=== PATIENT | male | born 1950 | race Caucasian/White ===

== ENCOUNTER → 2018-06-30 | Outpatient (CLI) | payer BC ==
[~2018-06-30] MED LIST: AMLO5TAB7 PO; ATOR10TA9 PO; CARV-39 PO; LISI-170 PO
[2018-06-30 13:53] LABS: BASOPHILS # (AUTO) 0.03 x10^3/uL (0-0.1); BASOPHILS % (AUTO) 0 % (0-1); EOSINOPHILS # (AUTO) 0.36 x10^3/uL (0-0.4); EOSINOPHILS % (AUTO) 3 % (1-7); LYMPHOCYTES # (AUTO) 2.07 x10^3/uL (1-3.4); LYMPHOCYTES % (AUTO) 19 % (22-44); MD NO; MEAN CORPUSCULAR HEMOGLOBIN 31.7 pg (27.5-34.5); MEAN CORPUSCULAR HGB CONC 33.1 g/dL (33.2-36.2); MEAN CORPUSCULAR VOLUME 95.8 fL (81-97); MEAN PLATELET VOLUME 9.7 fL (7.4-10.4); MONOCYTES # (AUTO) 0.85 x10^3/uL (0.2-0.8); MONOCYTES % (AUTO) 8 % (2-9); NEUTROPHILS # (AUTO) 7.78 x10^3/uL (1.8-6.8); NEUTROPHILS % (AUTO) 70 % (42-75); PLATELET COUNT 223 x10^3/uL (130-400); RED BLOOD COUNT 4.46 x10^6/uL (4.38-5.82); RED CELL DISTRIBUTION WIDTH 15.1 % (9.4-14.8)
[2018-06-30 13:57] LABS: MICROSCOPIC NOT IND
[2018-06-30 14:02] LABS: ALANINE AMINOTRANSFERASE 30 U/L (12-78); ALBUMIN 4.2 g/dL (3.4-5.0); ANION GAP 9 mmol/L (5-15); CALCIUM 9.1 mg/dL (8.5-10.1); CHLORIDE 108 mmol/L (98-107); CREATININE 1.18 mg/dL (0.7-1.3)
[2018-06-30 14:05] LABS: ALKALINE PHOSPHATASE 97 U/L (45-117); BILIRUBIN,TOTAL 0.6 mg/dL (0.2-1.0)
[2018-06-30 14:10] LABS: CULTURE INDICATED? NO
== END | disposition home or self-care (01) ==
LOC: STAR 12:50
PROVIDERS: ATTEND Orthopaedic Surgery
DX: Z01.818 Encounter for other preprocedural examination (principal); M17.11 Unilateral primary osteoarthritis, right knee; M25.561 Pain in right knee
CPT/HCPCS: 36415; 80053; 81003; 85025; 87081; 93005

== ENCOUNTER 2018-07-14 06:40 | Inpatient (IN) | payer BC ==
[~2018-07-14] VITALS: Ht 177.8 cm; Wt 87.9 kg
[~2018-07-14 06:40] MED LIST changes: +EPINEPHRINE 1 MG/ML, 1ML ONE; +KETOROLAC 60 MG/2 ML ONE; +ROPIvacaine/PF 0.2%, 20 ML ONE; +SODIUM CHLORIDE 0.9% 0 ML ONE; +TRANEXAMIC ACID 100 MG/ML, 10ML ONE
[2018-07-14] MEDS ORDERED: LACTATED RINGERS 1,000 ML IV SCH (07:02)
[2018-07-14] MEDS ORDERED: SCOPOLAMINE PATCH, 1.5MG PATCH.TD72 TD STA (07:03)
[2018-07-14] MEDS ORDERED: GABAPENTIN 300 MG CAPSULE PO STA (07:03)
[2018-07-14] MEDS ORDERED: ACETAMINOPHEN 500 MG TABLET PO STA (07:03)
[2018-07-14] MEDS ORDERED: FENTANYL PF 250 MCG/5ML ONE (08:07)
[2018-07-14] MEDS ORDERED: MIDAZOLAM 1 MG/ML, 2ML ONE (08:07)
[2018-07-14] MEDS ORDERED: D5%-0.45% NACL 1,000 ML IV SCH (08:55)
[2018-07-14] MEDS ORDERED: BISACODYL 10 MG SUPP PR PRN (09:00)
[2018-07-14] MEDS ORDERED: DOCUSATE 100 MG CAPSULE PO SCH (09:00)
[2018-07-14] MEDS ORDERED: TEMPLATE NON-FORMULARY MED. (Carvedilol** 25 MG) PO SCH (09:00)
[2018-07-14] MEDS ORDERED: MAGNESIUM HYDROXIDE 8%, 30ML UDC PO PRN (09:00)
[2018-07-14] MEDS ORDERED: ACETAMINOPHEN 650 MG/20.3 ML UDC PO SCH (09:00)
[2018-07-14] MEDS ORDERED: ZOLPIDEM 5MG TABLET PO PRN (09:00)
[2018-07-14] MEDS ORDERED: ONDANSETRON 4 MG TABLET PO PRN (09:00)
[2018-07-14] MEDS ORDERED: ALUMINUM/MAG/SIMETHICONE 30 ML UDC PO PRN (09:00)
[2018-07-14] MEDS ORDERED: SENNA/DOCUSATE TABLET PO PRN (09:00)
[2018-07-14] MEDS ORDERED: DIAZEPAM 5 MG TABLET PO PRN (09:00)
[2018-07-14] MEDS ORDERED: DIPHENHYDRAMINE 50 MG CAPSULE PO PRN (09:00)
[2018-07-14] MEDS ORDERED: HYDROmorphone 1 MG/ML, 1ML IV PRN (09:00)
[2018-07-14] MEDS ORDERED: ONDANSETRON 2MG/ML, 2ML IV PRN (09:00)
[2018-07-14] MEDS ORDERED: TEMPLATE NON-FORMULARY MED. (Amlodipine Besylate** 5 MG) PO SCH (09:00)
[2018-07-14] MEDS ORDERED: PROMETHAZINE 12.5 MG SUPP PR PRN (09:00)
[2018-07-14] MEDS ORDERED: KETOROLAC 30 MG/1 ML IV SCH (09:00)
[2018-07-14] MEDS ORDERED: PROMETHAZINE 25 MG/ML, 1ML IM PRN (09:00)
[2018-07-14] MEDS ORDERED: LISINOPRIL 20 MG TABLET PO SCH (09:00)
[2018-07-14] MEDS ORDERED: MULTIVITAMINS/MINERALS TABLET PO SCH (09:00)
[2018-07-14] MEDS ORDERED: OXYcodone IR 5MG TABLET PO PRN (09:00)
[2018-07-14] MEDS ORDERED: ONDANSETRON 2MG/ML, 2ML ONE (09:13)
[2018-07-14] MEDS ORDERED: CEFAZOLIN 1,000 MG ONE (09:13)
[2018-07-14] MEDS ORDERED: ROCURONIUM 10MG/ML,5ML ONE (09:13)
[2018-07-14] MEDS ORDERED: EPHEDRINE 50 MG/ML, 1ML ONE (09:13)
[2018-07-14] MEDS ORDERED: SUCCINYLCHOLINE 20 MG/ML, 10ML ONE (09:13)
[2018-07-14] MEDS ORDERED: DEXAMETHASONE 4 MG/ML, 1ML ONE (09:13)
[2018-07-14] MEDS ORDERED: GLYCOPYRROLATE 0.2MG/1ML, 5ML ONE (09:13)
[2018-07-14] MEDS ORDERED: PROPOFOL 10 MG/ML, 20ML ONE (09:13)
[2018-07-14] MEDS ORDERED: SUGAMMADEX 200 MG/2 ML IVPush ONE (09:35)
[2018-07-14] MEDS ORDERED: TAMSULOSIN 0.4 MG CAP.ER.24H PO SCH (10:45)
[2018-07-14 10:51] LABS: BASOPHILS # (AUTO) 0.02 x10^3/uL (0-0.1); BASOPHILS % (AUTO) 0 % (0-1); EOSINOPHILS # (AUTO) 0.28 x10^3/uL (0-0.4); EOSINOPHILS % (AUTO) 4 % (1-7); LYMPHOCYTES # (AUTO) 1.09 x10^3/uL (1-3.4); LYMPHOCYTES % (AUTO) 17 % (22-44); MD NO; MEAN CORPUSCULAR HEMOGLOBIN 31.8 pg (27.5-34.5); MEAN CORPUSCULAR HGB CONC 33.7 g/dL (33.2-36.2); MEAN CORPUSCULAR VOLUME 94.6 fL (81-97); MEAN PLATELET VOLUME 9.3 fL (7.4-10.4); MONOCYTES % (AUTO) 5 % (2-9); NEUTROPHILS # (AUTO) 4.77 x10^3/uL (1.8-6.8); NEUTROPHILS % (AUTO) 74 % (42-75); PLATELET COUNT 221 x10^3/uL (130-400); RED BLOOD COUNT 4.33 x10^6/uL (4.38-5.82); RED CELL DISTRIBUTION WIDTH 15.1 % (9.4-14.8)
[2018-07-14 11:00] LABS: ALANINE AMINOTRANSFERASE 23 U/L (12-78); ALBUMIN 3.6 g/dL (3.4-5.0); ANION GAP 6 mmol/L (5-15); CALCIUM 8.7 mg/dL (8.5-10.1); CHLORIDE 110 mmol/L (98-107); CREATININE 0.98 mg/dL (0.7-1.3)
[2018-07-14] MEDS ORDERED: TRANEXAMIC ACID 1,000 MG in SODIUM CHLORIDE 0.9% 100 ML IVPB ONE (11:00)
[2018-07-14 11:05] LABS: ALKALINE PHOSPHATASE 81 U/L (45-117); BILIRUBIN,TOTAL 0.4 mg/dL (0.2-1.0); TOTAL PROTEIN 6.8 g/dL (6.4-8.2); TROPONIN I < 0.015 ng/mL (0.000-0.045)
[2018-07-14 12:30] VITALS: BP 108/72
[2018-07-14 13:32] LABS: CHOL/HDL RATIO 2.6; LDL/HDL RATIO 1.4 (0.5-3.0)
[2018-07-14 13:51] VITALS: BP 101/60
[2018-07-14 16:34] LABS: TROPONIN I < 0.015 ng/mL (0.000-0.045)
[2018-07-14] MEDS ORDERED: CEFAZOLIN PMX 2GM/50ML 50 ML IVPB SCH (17:30)
[2018-07-14] MEDS ORDERED: ASPIRIN 325 MG TABLET EC PO SCH (18:00)
[2018-07-14 19:38] VITALS: BP 113/71
[2018-07-14] MEDS ORDERED: ATORVASTATIN 10 MG TABLET PO SCH (21:00)
[2018-07-14] MEDS ORDERED: TEMPLATE NON-FORMULARY MED. (Atorvastatin Calcium** 10 MG) PO SCH (21:00)
[2018-07-14 22:34] LABS: TROPONIN I < 0.015 ng/mL (0.000-0.045)
[2018-07-15 02:18] VITALS: BP 114/72
[2018-07-15] MEDS ORDERED: DEXAMETHASONE 4 MG/ML, 1ML IVPush SCH (06:00)
[2018-07-15] MEDS ORDERED: CARVEDILOL 25 MG TABLET PO SCH ×2 (06:00→09:00)
[2018-07-15 08:00] VITALS: BP 124/66
[2018-07-15] MEDS ORDERED: REGADENOSON 0.4 MG/5 ML SYRINGE ONE (08:18)
[2018-07-15 12:28] VITALS: BP 131/79
[2018-07-16] MEDS ORDERED: aspirin PO (12:00)
== END 2018-07-15 15:20 | disposition home or self-care (01) | DRG 554 ==
LOC: OUT 06:40 → ORIP 08:55 → 5SO 10:59 → DCLOUNGE 07-15 14:55
PROVIDERS: ADMIT Orthopaedic Surgery; ATTEND Orthopaedic Surgery
PROC: 0SJCXZZ Inspection of Right Knee Joint, External Approach (ICD-10-PCS; principal; 2018-07-14 09:45)
DX: M17.11 Unilateral primary osteoarthritis, right knee (principal); E78.5 Hyperlipidemia, unspecified; I10 Essential (primary) hypertension; I25.10 Atherosclerotic heart disease of native coronary artery without angina pectoris; R00.1 Bradycardia, unspecified; Z53.8 Procedure and treatment not carried out for other reasons; Z96.643 Presence of artificial hip joint, bilateral; F17.210 Nicotine dependence, cigarettes, uncomplicated; Z79.899 Other long term (current) drug therapy; Z71.6 Tobacco abuse counseling; Z90.49 Acquired absence of other specified parts of digestive tract; Z82.49 Family history of ischemic heart disease and other diseases of the circulatory system; Z71.41 Alcohol abuse counseling and surveillance of alcoholic
CPT/HCPCS: 36415; J3490; 78452; 80053; 80061; 83036; 83735; 84100; 84484; 85025; 93005; 93017; 93306; G0378; J0171; J0690; J1100; J1885; J2250; J2405; J2704; J2785; J2795; J3010; A9502; C9898; J0330; J7120

== ENCOUNTER 2018-07-16 10:59 | Inpatient (IN) | payer MEDICARE, BC ==
[~2018-07-16] VITALS: Ht 177.8 cm; Wt 91.4 kg
[~2018-07-16 10:59] MED LIST changes: +AMLO-150 PO; -AMLO5TAB7 PO; -EPINEPHRINE 1 MG/ML, 1ML ONE; -KETOROLAC 60 MG/2 ML ONE; -ROPIvacaine/PF 0.2%, 20 ML ONE; -SODIUM CHLORIDE 0.9% 0 ML ONE; -TRANEXAMIC ACID 100 MG/ML, 10ML ONE
[2018-07-16 11:49] VITALS: BP 170/88
[2018-07-16] MEDS ORDERED: LACTATED RINGERS 1,000 ML IV SCH (11:55)
[2018-07-16] MEDS ORDERED: ONDANSETRON ODT 8 MG PO ONE (12:00)
[2018-07-16] MEDS ORDERED: aspirin PO (12:00)
[2018-07-16] MEDS ORDERED: ACETAMINOPHEN 500 MG TABLET PO ONE (12:00)
[2018-07-16] MEDS ORDERED: MIDAZOLAM 1 MG/ML, 2ML ONE (12:52)
[2018-07-16] MEDS ORDERED: SUCCINYLCHOLINE 20 MG/ML, 10ML ONE (12:52)
[2018-07-16] MEDS ORDERED: LIDOCAINE-MPF 2% ,5ML ONE (12:52)
[2018-07-16] MEDS ORDERED: PROPOFOL 10 MG/ML, 20ML ONE (12:52)
[2018-07-16] MEDS ORDERED: FENTANYL PF 100 MCG/2ML ONE ×3 (12:52→16:32)
[2018-07-16] MEDS ORDERED: CEFAZOLIN 1,000 MG ONE ×2 (12:52)
[2018-07-16] MEDS ORDERED: ROPIvacaine/PF 0.2%, 20 ML ONE (14:08)
[2018-07-16] MEDS ORDERED: KETOROLAC 60 MG/2 ML ONE (14:08)
[2018-07-16] MEDS ORDERED: TRANEXAMIC ACID 100 MG/ML, 10ML ONE (14:08)
[2018-07-16] MEDS ORDERED: EPINEPHRINE 1 MG/ML, 1ML ONE (14:08)
[2018-07-16] MEDS ORDERED: SODIUM CHLORIDE 0.9% 100 ML ONE (14:08)
[2018-07-16] MEDS ORDERED: ESMOLOL 100 MG/10 ML ONE (14:27)
[2018-07-16] MEDS ORDERED: GLYCOPYRROLATE 0.2MG/1ML, 5ML ONE (14:27)
[2018-07-16] MEDS ORDERED: EPHEDRINE 50 MG/ML, 1ML IVPush PRN (15:30)
[2018-07-16] MEDS ORDERED: ONDANSETRON 2MG/ML, 2ML IV PRN ×2 (15:30→16:30)
[2018-07-16] MEDS ORDERED: hydrALAzine 20 MG/ML, 1ML IV PRN (15:30)
[2018-07-16] MEDS ORDERED: DIAZEPAM 5 MG/ML, 2ML IVPush PRN (15:30)
[2018-07-16] MEDS ORDERED: MEPERIDINE/PF 25MG/0.5ML IVPush PRN (15:30)
[2018-07-16] MEDS ORDERED: OXYcodone 5 MG/5 ML ORAL.SOL UDC PO PRN (15:30)
[2018-07-16] MEDS ORDERED: FENTANYL PF 100 MCG/2ML IV PRN (15:30)
[2018-07-16] MEDS ORDERED: MORPHINE SULFATE 4 MG/ML, 1ML IVPush PRN (15:30)
[2018-07-16] MEDS ORDERED: METOCLOPRAMIDE 5 MG/ML, 2ML IV PRN (15:30)
[2018-07-16] MEDS ORDERED: MEPERIDINE/PF 50 MG/ML ONE (16:24)
[2018-07-16] MEDS ORDERED: ONDANSETRON 4 MG TABLET PO PRN (16:30)
[2018-07-16] MEDS ORDERED: PROMETHAZINE 25 MG/ML, 1ML IM PRN (16:30)
[2018-07-16] MEDS ORDERED: morphine SULFATE 10 MG/ML, 1ML IV PRN (16:30)
[2018-07-16] MEDS ORDERED: BISACODYL 10 MG SUPP PR PRN (16:30)
[2018-07-16] MEDS ORDERED: ACETAMINOPHEN 650 MG/20.3 ML UDC PO PRN (16:30)
[2018-07-16] MEDS ORDERED: MAGNESIUM HYDROXIDE 8%, 30ML UDC PO PRN (16:30)
[2018-07-16] MEDS ORDERED: HYDROcodone/APAP 5/325 TABLET PO PRN (16:30)
[2018-07-16] MEDS ORDERED: DIPHENHYDRAMINE 50 MG CAPSULE PO PRN (16:30)
[2018-07-16] MEDS ORDERED: ZOLPIDEM 5MG TABLET PO PRN (16:30)
[2018-07-16] MEDS ORDERED: ALUMINUM/MAG/SIMETHICONE 30 ML UDC PO PRN (16:30)
[2018-07-16] MEDS ORDERED: DIAZEPAM 5 MG TABLET PO PRN (16:30)
[2018-07-16] MEDS ORDERED: HYDROmorphone 2 MG/ML, 1ML ONE (16:32)
[2018-07-16] MEDS ORDERED: OXYcodone 5 MG/5 ML ORAL.SOL UDC ONE (16:32)
[2018-07-16] MEDS: HYDROmorphone 1 MG/ML, 1ML IV PRN ×3 (16:35→16:50)
[2018-07-16] MEDS ORDERED: TRANEXAMIC ACID 1,000 MG in SODIUM CHLORIDE 0.9% 100 ML IVPB ONE (18:00)
[2018-07-16 18:58] VITALS: BP 125/79
[2018-07-16 20:00] VITALS: BP 125/79
[2018-07-16 20:26] LABS: ALBUMIN 3.5 g/dL (3.4-5.0); ANION GAP 8 mmol/L (5-15); CALCIUM 8.5 mg/dL (8.5-10.1); CHLORIDE 109 mmol/L (98-107); CREATININE 1.09 mg/dL (0.7-1.3)
[2018-07-16] MEDS: DOCUSATE 100 MG CAPSULE PO SCH (21:03)
[2018-07-16] MEDS: ATORVASTATIN 10 MG TABLET PO SCH (21:03)
[2018-07-16] MEDS: D5%-0.45% NACL 1,000 ML IV SCH (21:06)
[2018-07-16] MEDS: CEFAZOLIN PMX 1GM/50ML 50 ML IVPB SCH (21:06)
[2018-07-16] MEDS: APIXABAN 5 MG TABLET PO SCH (21:08)
[2018-07-16] MEDS: OXYcodone IR 5MG TABLET PO PRN (21:10)
[2018-07-17 01:40] VITALS: BP 113/66
[2018-07-17] MEDS: CEFAZOLIN PMX 1GM/50ML 50 ML IVPB SCH (04:50)
[2018-07-17] MEDS: D5%-0.45% NACL 1,000 ML IV SCH ×3 (04:56→20:50)
[2018-07-17] MEDS ORDERED: DEXAMETHASONE 4 MG/ML, 1ML IVPush SCH (06:00)
[2018-07-17 06:05] LABS: BASOPHILS # (AUTO) 0.03 x10^3/uL (0-0.1); BASOPHILS % (AUTO) 0 % (0-1); EOSINOPHILS # (AUTO) 0.23 x10^3/uL (0-0.4); EOSINOPHILS % (AUTO) 2 % (1-7); LYMPHOCYTES # (AUTO) 1.11 x10^3/uL (1-3.4); LYMPHOCYTES % (AUTO) 10 % (22-44); MD NO; MEAN CORPUSCULAR HEMOGLOBIN 31.9 pg (27.5-34.5); MEAN CORPUSCULAR HGB CONC 33.6 g/dL (33.2-36.2); MEAN PLATELET VOLUME 9.8 fL (7.4-10.4); MONOCYTES # (AUTO) 0.87 x10^3/uL (0.2-0.8); MONOCYTES % (AUTO) 8 % (2-9); NEUTROPHILS # (AUTO) 8.62 x10^3/uL (1.8-6.8); NEUTROPHILS % (AUTO) 79 % (42-75); PLATELET COUNT 183 x10^3/uL (130-400); RED BLOOD COUNT 3.45 x10^6/uL (4.38-5.82); RED CELL DISTRIBUTION WIDTH 14.8 % (9.4-14.8)
[2018-07-17 06:55] VITALS: BP 116/69
[2018-07-17] MEDS: APIXABAN 5 MG TABLET PO SCH ×2 (09:00→20:52)
[2018-07-17] MEDS: DOCUSATE 100 MG CAPSULE PO SCH ×2 (09:43→20:52)
[2018-07-17] MEDS ORDERED: ASPI-515 PO (11:34)
[2018-07-17] MEDS ORDERED: APIX5TAB PO (11:34)
[2018-07-17] MEDS ORDERED: DOCU-131 PO (11:34)
[2018-07-17] MEDS ORDERED: OXYC5TAB3 PO (11:34)
[2018-07-17 12:50] VITALS: BP 130/85
[2018-07-17] MEDS ORDERED: KETOROLAC 30 MG/1 ML IV SCH (16:30)
[2018-07-17 18:43] VITALS: BP 132/70
[2018-07-17] MEDS: ASPIRIN 81 MG TABLET CHEW PO SCH (20:51)
[2018-07-17] MEDS: ATORVASTATIN 10 MG TABLET PO SCH (20:52)
[2018-07-18 01:39] VITALS: BP 126/75
[2018-07-18] MEDS: OXYcodone IR 5MG TABLET PO PRN ×2 (04:36→11:26)
[2018-07-18] MEDS: D5%-0.45% NACL 1,000 ML IV SCH ×2 (04:54→09:15)
[2018-07-18] MEDS: ASPIRIN 81 MG TABLET CHEW PO SCH (05:40)
[2018-07-18 08:19] VITALS: BP 144/77
[2018-07-18 08:50] VITALS: BP 157/79
[2018-07-18] MEDS: APIXABAN 5 MG TABLET PO SCH (08:55)
[2018-07-18] MEDS: DOCUSATE 100 MG CAPSULE PO SCH (09:00)
[2018-07-18] MEDS ORDERED: METOPROLOL SUCCINATE 25 MG TAB.ER.24H PO SCH (09:30)
== END 2018-07-18 13:09 | disposition home or self-care (01) | DRG 470 ==
LOC: OUT 10:59 → ORIP 16:28 → 4EST 18:28
PROVIDERS: ADMIT Orthopaedic Surgery; ATTEND Orthopaedic Surgery
PROC: 3E0T3BZ Introduction of Anesthetic Agent into Peripheral Nerves and Plexi, Percutaneous Approach (ICD-10-PCS; 2018-07-16)
PROC: 0SRC069 Replacement of Right Knee Joint with Oxidized Zirconium on Polyethylene Synthetic Substitute, Cemented, Open Approach (ICD-10-PCS; principal; 2018-07-16 14:00)
DX: M17.11 Unilateral primary osteoarthritis, right knee (principal); D68.69 Other thrombophilia; E78.5 Hyperlipidemia, unspecified; I10 Essential (primary) hypertension; Z96.643 Presence of artificial hip joint, bilateral; F17.290 Nicotine dependence, other tobacco product, uncomplicated; Z82.49 Family history of ischemic heart disease and other diseases of the circulatory system; Z79.1 Long term (current) use of non-steroidal anti-inflammatories (NSAID); Z79.899 Other long term (current) drug therapy; I08.1 Rheumatic disorders of both mitral and tricuspid valves; I48.0 Paroxysmal atrial fibrillation; R00.1 Bradycardia, unspecified; T44.7X5A Adverse effect of beta-adrenoreceptor antagonists, initial encounter; Z71.6 Tobacco abuse counseling; Z90.49 Acquired absence of other specified parts of digestive tract; Z90.89 Acquired absence of other organs
CPT/HCPCS: 36415; 80069; 83735; 84443; 85025; 93005; C1713; G0378; J0171; J0690; J1100; J1170; J1885; J2175; J2250; J2704; J2795; J3010; J3490; Q0162; C1776; J0330; J7120